=== PATIENT | female | born 1950 | race Caucasian/White ===

== ENCOUNTER 2017-07-04 08:27 | Outpatient (CLI) | payer MEDICARE ==
--- NOTE | 2017-07-04 10:46 | CT ---
ABDOMEN CT WITH CONTRAST PELVIC CT WITH CONTRAST: Date: 07/04/17 HISTORY: Abdominal pain. Stretching feeling. Patient has a history of vaginal wall collapse and hernia. COMPARISON: None. TECHNIQUE: Abdomen and pelvic CT performed with IV and oral contrast. Reformatted images are submitted for inter pretation. FINDINGS: ABDOMEN CT: Dependent atelectatic changes lung bases. Normal heart size. No pericardial effusion. Descending thor acic aorta and abdominal aorta have normal caliber. No periaortic fat stranding. Gallbladder is unrem arkable. Intra and extrahepatic portal vein is patent. Liver, spleen, pancreas, and adrenal glands have appropriate enhancement. No gastrohepatic, retrocrural, or periportal lymphadenopathy. No mesenteric mass, lymphadenopathy, free air, or free fluid. Symmetric enhancement of the kidneys. Multiple hypodensities in the left and right renal cortex, comp atible with renal parenchymal cysts. The largest cyst is in the lower pole of the right kidney, measu ring 1.7 cm. Hypodensities in the left and right renal pelvis are noted. It is difficult to determine if these are parapelvic cysts or dilatation of the intrarenal collecting system. Bilaterally, the ureters have a normal caliber. No hydroureter, periureteral fat stranding, or ureterolithiasis. Gastric mucosa and duodenum are normal in appearance. Multiple normal caliber small bowel loops. Ileo cecal junction is normal. Appendix is not appreciated. No inflammation of the cecal apex. Contrast an d fecal material in a nondistended, nondilated colon. PELVIC CT: Uterus is surgically absent. Heterogeneous appearance of the vaginal vault. There is mild mucosal pro minence in the dependent portion of the urinary bladder. No pelvic mass, lymphadenopathy, free air, o r free fluid. No lytic or blastic lesions within the osseous structures. IMPRESSION: 1. No evidence of bowel obstruction. 2. Heterogeneous appearance of the vaginal vault. 3. Hypodensities left and right renal pelvis, nonspecific. Parapelvic cysts are favored. Confirmed w ith IVP is recommended. 4. Mild soft tissue prominence in the dependent portion of the urinary bladder. Consider cystoscopy. CODE T. POS: [facility]
== END 2017-07-04 08:28 | disposition home or self-care (01) ==
LOC: SCSCT 08:27
PROVIDERS: ATTEND Family Medicine
DX: R10.84 Generalized abdominal pain (principal); N94.89 Other specified conditions associated with female genital organs and menstrual cycle; R93.41 Abnormal radiologic findings on diagnostic imaging of renal pelvis, ureter, or bladder
CPT/HCPCS: 74177

== ENCOUNTER 2017-07-17 08:02 | Outpatient (CLI) | payer MEDICARE | END 2017-07-17 08:03 | disposition home or self-care (01) | LOC: BICULT 08:02 | PROVIDERS: ATTEND Internal Medicine | DX: R10.11 Right upper quadrant pain (principal); Z90.49 Acquired absence of other specified parts of digestive tract | CPT/HCPCS: 76705 ==

== ENCOUNTER 2017-08-16 15:23 | Outpatient (CLI) | payer MEDICARE ==
[2017-08-16 16:27] LABS: Hemoglobin 12.9 g/dL (12.0-16.0); Mean Corpuscular HGB CONC 33.9 g/dL (32.0-36.0); Mean Corpuscular Volume 97.2 fL (78.0-98.0); Mean Platelet Volume 7.4 fL (7.4-10.4); Platelet Count 216 thou/uL (130-400); RBC Distribution Width 11.6 % (11.5-14.5); Red Blood Cell (RBC) Count 3.91 mill/uL (4.20-5.40); White Blood Cell (WBC) Count 7.1 thou/uL (4.8-10.8)
== END 2017-08-16 15:24 | disposition home or self-care (01) ==
LOC: LABBT 15:23
PROVIDERS: ATTEND Obstetrics & Gynecology
DX: Z01.812 Encounter for preprocedural laboratory examination (principal); N81.10 Cystocele, unspecified; N81.6 Rectocele
CPT/HCPCS: 85027; 86850; 86900; 86901

== ENCOUNTER 2017-08-21 07:11 | Observation (INO) | payer MEDICARE ==
[2017-08-16 15:40] VITALS: BMI 21.4
--- NOTE | 2017-08-16 16:08 | HP ---
HISTORY OF PRESENT ILLNESS: Ms. Blake is a 67-year-old white female who has recently noted a bulgi ng sensation in her vagina. This occurred after she had lifting some heavy water bottles. She has h ad a history of previous hysterectomy in the past. She denies any stress incontinence or urge incont inence issues. She was seen in my office on 07/11/2017 and was noted to have significant pelvic prol apse with grade 3 cystocele and grade 2 rectocele and she desired surgical repair. PAST MEDICAL HISTORY: Hypothyroidism and some allergic rhinitis. PAST SURGICAL HISTORY: Cholecystectomy, hysterectomy, tubal ligation. SOCIAL HISTORY: Nonsmoker, minimal alcohol use. She is currently and retired. ALLERGIES: SULFA DRUGS. FAMILY HISTORY: Essential hypertension, heart disease, and diabetes. PHYSICAL EXAMINATION: VITAL SIGNS: Blood pressure is 110/64, pulse is regular at 76, respirations 18, height 65 inches, we ight 128 pounds with a BMI 21.3. GENERAL: Showed a well-developed, well-nourished, white female in no acute distress. NECK: Supple. No thyromegaly or masses. CHEST: Clear to auscultation. HEART: Regular rate and rhythm. S1, S2 heart sounds. No murmurs, rubs or gallops. ABDOMEN: Soft, nontender, nondistended with no palpable masses. PELVIC: Vulva and vagina had no lesions. There was a grade III cystocele and a grade II rectocele. The vaginal cuff seemed adequately supported. Cervix was surgically absent along with absent surgic al uterus. There were no adnexal masses or tenderness. ASSESSMENT: A 67-year-old white female with symptomatic grade 3 cystocele and grade II rectocele, de siring surgical repair. PLAN: Proceed with an anterior and posterior repair on 08/21/2017. Risks and benefits of procedure discussed in detail. She is set for surgery for that day.
[2017-08-21] MEDS ORDERED: CEFAZOLIN/Water 2 GM/20 ML SYRINGE ONE (08:17)
[2017-08-21] MEDS ORDERED: Scopolamine 1.5 mg/72 hour Patch ONE (09:16)
[2017-08-21] MEDS ORDERED: Midazolam HCl 2 mg/2 ml Vial ONE (09:16)
[2017-08-21] MEDS ORDERED: Lidocaine 1% w/Epinephrine 1:100K 30 ML VIAL ONE (09:44)
[2017-08-21] MEDS ORDERED: Fentanyl 100 MCG/2 ML VIAL ONE ×3 (09:46→11:49)
[2017-08-21] MEDS ORDERED: Promethazine HCl 25 MG/ML VIAL SLOW IVP PRN (11:25)
[2017-08-21] MEDS ORDERED: Promethazine HCl 25 MG/ML VIAL IM PRN ×2 (11:25→12:50)
[2017-08-21] MEDS ORDERED: Ondansetron HCl/PF 4 MG/2 ML Vial IVP PRN ×2 (11:25→12:50)
[2017-08-21] MEDS ORDERED: Ketorolac Tromethamine 30 MG/ML VIAL ONE (11:49)
[2017-08-21] MEDS ORDERED: traMADol HCl 50 MG TAB PO PRN (12:50)
[2017-08-21] MEDS ORDERED: diphenhydrAMINE 25 MG CAP PO PRN (12:50)
[2017-08-21] MEDS ORDERED: Ketorolac Tromethamine 30 MG/ML VIAL IVP SCH (13:00)
[2017-08-21] MEDS ORDERED: Lidocaine 1% PF 5 ML VIAL ONE (13:12)
[2017-08-21] MEDS ORDERED: PROPOFOL 200 MG/20 ML VIAL ONE (13:12)
[2017-08-21] MEDS ORDERED: Dexamethasone 20 MG/5 ML VIAL ONE (13:12)
[2017-08-21] MEDS ORDERED: Ondansetron HCl/PF 4 MG/2 ML Vial ONE (13:12)
--- NOTE | 2017-08-21 16:34 | OP ---
DATE OF PROCEDURE: 08/21/2017 PREOPERATIVE DIAGNOSIS: A 67-year-old white female with prior hysterectomy with grade 3 cystocele an d rectocele, symptomatic. POSTOPERATIVE DIAGNOSIS: A 67-year-old white female with prior hysterectomy with grade 3 cystocele a nd rectocele, symptomatic. PROCEDURE PERFORMED: Anterior and posterior repair. SURGEON: Dora Rowland M.D. BUSINESS ASSOCIATE SURGEON: Yony Gimenez M.D. ANESTHESIA: General. ESTIMATED BLOOD LOSS: Less than 50 mL. COMPLICATIONS: None. COUNTS: Correct x2. ANTIBIOTICS: Two grams Ancef front desk associate to OR. DRAINS: Chawla catheter clear urine draining. ANTIBIOTICS: 2 grams Ancef. PATHOLOGY: None. FINDINGS: Post procedure, no evidence of any rectal suture placement and with digital rectal exam wi th good reduction of rectocele noted. DISPOSITION: To the recovery room stable, then 23-hour observation. DESCRIPTION OF OPERATIVE PROCEDURE: The patient previously received informed consent in regard to moseley rgery. She was taken back to the operating room where she received a general anesthetic agent withou t complications. She was placed in the dorsal lithotomy position with candycane stirrups and prepped and draped in the usual sterile fashion. Chawla catheter was placed at this time. A curved [place] b lade was then placed on the vaginal cuff and was grasped with 2 Allis clamps. The anterior vaginal m ucosa was infiltrated with 1% lidocaine with epinephrine. Then, a midline incision and anterior vagi nal mucosa was made with Metzenbaum scissors. The mucosa was then dissected submucosally up to appro ximately 2 cm from the urethral meatus and the edges of the vaginal mucosa were grasped with Allis-Ad air clamps. The cystocele defect was then reduced with both sharp and blunt dissection, dissecting e ndopelvic fascia away from the vaginal mucosa. Once the cystocele was adequately reduced, figure-of- eight sutures of 2-0 Vicryl were then placed reincorporating the endopelvic fascia and plicating this in the midline with reduction of the cystocele. This initiated most proximally towards the urethral meatus and then working, then caudally reducing the cystocele defect. The excess vaginal mucosa was trimmed and then the vaginal mucosa was closed with a running 2-0 Vicryl suture incorporating the en dopelvic tissue to rid the space. Hemostasis was confirmed. Clear urine has been draining from the Chawla catheter and this again was confirmed. The posterior repair was then carried out and two Allis clamps placed in the vaginal introitus opening the posterior introitus at the 4 and 8 o'clock p osition. The vaginal mucosa overlying the rectocele was infiltrated with 1% lidocaine with epinephri ne. A midline incision in the vaginal posterior mucosa was then made with Metzenbaum scissors. The edges of this were grasped with Allis-Teodoro clamps and again the rectocele was dissected away from th e vaginal mucosa submucosally with Metzenbaum scissors until the vaginal cuff was reached. The edges of the vaginal mucosa again were grasped with Allis clamps for countertraction. The rectocele was t hen dissected both sharply and bluntly reducing the rectocele all the way up to the vaginal cuff. No enterocele was encountered. The endopelvic fascia then starting most caudally was then grasped with a 0 Vicryl suture and again plicated in the midline from [id number] reducing the rectocele defect until this worked out towards the introitus. The endopelvic fascia was replicated well with reductio n of the hernia. Hemostasis of the fascia was confirmed. The posterior mucosa was then trimmed and the posterior vaginal mucosa was then closed starting at the apex incorporating this into the endopel ed fascia in a interrupted [id number] sutures of 2-0 Vicryl securing hemostasis. A rectal exam was performed and no evidence of any inadvertent stitches that had been placed in the rectum were co nfirmed. The vagina was then packed with a moistened Kerlix. The patient was awakened from anesthes ia, transferred to the recovery in stable condition.
[2017-08-21] MEDS: Ketorolac Tromethamine 30 MG/ML VIAL IVP SCH (17:23)
[2017-08-21] MEDS: Lactated Ringer's 1,000 ML IV SCH (17:34)
[2017-08-22] MEDS: Ketorolac Tromethamine 30 MG/ML VIAL IVP SCH ×2 (00:11→05:34)
[2017-08-22] MEDS: Lactated Ringer's 1,000 ML IV SCH (02:25)
[2017-08-22 05:53] LABS: Hemoglobin 10.7 g/dL (12.0-16.0); Mean Corpuscular HGB CONC 33.7 g/dL (32.0-36.0); Mean Corpuscular Hemoglobin 33.2 pg (27.0-31.0); Mean Corpuscular Volume 98.3 fL (78.0-98.0); Mean Platelet Volume 7.4 fL (7.4-10.4); Platelet Count 174 thou/uL (130-400); RBC Distribution Width 11.4 % (11.5-14.5); Red Blood Cell (RBC) Count 3.24 mill/uL (4.20-5.40); White Blood Cell (WBC) Count 7.3 thou/uL (4.8-10.8)
[2017-08-22] MEDS ORDERED: Levothyroxine Sodium 50 MCG TAB PO SCH (06:00)
--- NOTE | 2017-08-22 07:56 | PDOC.EVN ---
Event Note - Event Note Event Note: No pain this morning. No nausea. Will begin voiding trials today. O:AFVSS perineum intact and dry. no active bleeding or hematoma. A/P doing well post op day 1 from A&P repair. pvr checks after voiding. if doing well, d/c home. Hasw rx for tramadol and f/u in 2 and 6 weeks.
[2017-08-22] MEDS ORDERED: Fluticasone Propionate Nasal Spray 16 gm Bottle NASAL SCH (09:00)
[2017-08-22] MEDS ORDERED: Bisacodyl 5 MG TAB PO SCH (09:00)
[2017-08-22 11:57] VITALS: BP 122/58; TEMP 99.5
[2017-08-26] MEDS ORDERED: Ibuprofen 800 MG TAB PO SCH (21:00)
== END 2017-08-22 12:15 | disposition home or self-care (01) ==
LOC: SDC 07:11 → 3SE 12:49 → EDSTATUS 15:15 → 3SE 08-22 00:13 → SDC 08-22 00:13
PROVIDERS: ADMIT Obstetrics & Gynecology; ATTEND Obstetrics & Gynecology
PROC: 0JQC0ZZ Repair Pelvic Region Subcutaneous Tissue and Fascia, Open Approach (ICD-10-PCS; principal; 2017-08-21)
PROC: 0JQC0ZZ Repair Pelvic Region Subcutaneous Tissue and Fascia, Open Approach (ICD-10-PCS; 2017-08-22)
DX: N81.10 Cystocele, unspecified (principal); N81.6 Rectocele; Z88.2 Allergy status to sulfonamides; Z79.899 Other long term (current) drug therapy
CPT/HCPCS: 57260; 85027; 96361 ×2; 96374; 96375; 96376 ×2; G0378; 36415; A4216; J1100; J1885; J2001; J2250; J2270; J2405; J2704; J3010

== ENCOUNTER 2018-04-05 09:11 | Outpatient (CLI) | payer MEDICARE ==
--- NOTE | 2018-04-05 11:03 | BD ---
DEXA BONE DENSITY STUDY: HISTORY: Postmenopausal. Long-term use of bisphosphonates. LUMBAR SPINE BMD (g/cm2) T-SCORE L1 0.845 -1.3 L2 0.864 -1.5 L3 0.862 -2.0 L4 0.846 -2.0 TOTAL 0.854 -1.8 LEFT FEMORAL NECK 0.604 -2.2 TOTAL 0.753 -1.5 IMPRESSION: 1. Osteopenia of the lumbar spine and left femoral neck. 2. Ten-year fracture risk for major osteoporotic fracture is 11%, with hip fracture is 2.2%. These fracture probabilities are calculated for an untreated patient. POS: [facility]
== END 2018-04-05 09:12 | disposition home or self-care (01) ==
LOC: BICMAMMO 09:11
PROVIDERS: ATTEND Family Medicine
DX: Z13.820 Encounter for screening for osteoporosis (principal); M85.89 Other specified disorders of bone density and structure, multiple sites; Z79.83 Long term (current) use of bisphosphonates
CPT/HCPCS: 77080

== ENCOUNTER 2018-10-20 21:53 | Observation (INO) | payer MEDICARE ==
[~2018-10-20 21:53] MED LIST: Iopamidol 370 76% 100 ML VIAL ONE
[2018-10-20 22:38] LABS: #Basophils 0.1 thou/uL (0.0-0.2); #Eosinphils 0.2 thou/uL (0.0-0.7); #Lymphocytes 2.1 thou/uL (1.20-3.40); #Monocytes 0.6 thou/uL (0.11-0.59); %Basophils 1.2 % (0.0-1.0); %Eosinophils 2.2 % (0.0-10.0); %Lymphocytes 26.7 % (21.0-51.0); %Monocytes 7.4 % (0.0-10.0); %Neutrophils 62.5 % (42.0-75.0); Hemoglobin 12.8 g/dL (12.0-16.0); Mean Corpuscular HGB CONC 32.9 g/dL (32.0-36.0); Mean Corpuscular Hemoglobin 32.3 pg (27.0-31.0); Mean Corpuscular Volume 98.2 fL (78.0-98.0); Mean Platelet Volume 6.9 fL (7.4-10.4); Platelet Count 212 thou/uL (130-400); RBC Distribution Width 11.8 % (11.5-14.5); Red Blood Cell (RBC) Count 3.97 mill/uL (4.20-5.40); White Blood Cell (WBC) Count 7.9 thou/uL (4.8-10.8)
--- NOTE | 2018-10-20 22:39 | RAD ---
EXAM: CHEST ONE VIEW HISTORY: Chest pain, nausea, numbness in left arm. COMPARISON: 10/20/2004. FINDINGS: The cardiac silhouette and pulmonary vasculature is within normal limits. The lungs are clear. The os seous structures are intact. Surgical clips overlie the right upper quadrant. There has been no interval change from prior study. IMPRESSION: No acute cardiopulmonary process.
[2018-10-20 22:45] LABS: Prothrombin Time 12.9 SEC (12.0-14.7)
[2018-10-20] MEDS ORDERED: Nitroglycerin 2% Ointment 1 INCH/1 GM Packet ONE (22:49)
[2018-10-20 22:53] LABS: Bilirubin Negative (Negative); Blood, Urine Small (Negative); Clarity Clear (Clear); Glucose, Urine (Dipstick) Negative (Negative); Leukocyte Large (Negative); Nitrite Negative (Negative); Protein, Urine (Dipstick) Negative (Neg-Trace); Urobilinogen 0.2 mg/dL (Less than 2)
[2018-10-20 22:56] LABS: ALT (SGPT) 13 U/L (8-55); AST (SGOT) 24 U/L (5-34); Albumin 4.2 g/dL (3.4-4.8); Alkaline Phosphatase 53 U/L (40-150); Anion Gap 15 mmol/L (10-20); BUN (Urea Nitrogen) 17 mg/dL (9.8-20.1); Bilirubin, Total 0.2 mg/dL (0.2-1.2); CK (CPK) 72 U/L (29-168); Calc. Creatinine Clearance 0 mL/min (70-130); Calcium 9.4 mg/dL (7.8-10.44); Carbon Dioxide 26 mmol/L (23-31); Chloride 105 mmol/L (98-107); Estimated GFR-MDRD 67; Globulin 3.7 g/dL (2.4-3.5); Glucose 102 mg/dL (80-115); Lipase 52 U/L (8-78); Potassium 4.7 mmol/L (3.5-5.1); Protein, Total 7.9 g/dL (6.0-8.3); Sodium 141 mmol/L (136-145)
--- NOTE | 2018-10-20 22:57 | CT ---
CT HEAD WITHOUT IV CONTRAST COMPARISON: 10/20/2004 HISTORY: Left arm numbness. TECHNIQUE: Axial CT imaging at 5 mm intervals from vertex through skull base without contrast FINDINGS: There is mild cerebral volume loss not unexpected for the patient's age and similar to prior study. A punctate 3 mm low-density focus is seen in the left lentiform nucleus which may represent a tiny lacunar infarction of indeterminate age. There is no evidence of an acute cortical infarction, hemorr santos, mass effect, or midline shift. The ventricular system is normal in size, shape, and position. Visualized paranasal sinuses are clear. Osseous structures appear intact. IMPRESSION: 1. No acute intracranial abnormality demonstrated. 2. Tiny lacunar infarction left lentiform nucleus of indeterminate age.
[2018-10-20 22:59] LABS: Bacteria/HPF Rare-Few HPF (None Seen); RBC/HPF 0-3 HPF (0-3); Squamous Epithelial 0-3 HPF (0-3); WBC/HPF 0-3 HPF (0-3)
--- NOTE | 2018-10-20 23:19 | CT ---
EXAM: CTA Angio Neck W WO Con PROVIDED CLINICAL HISTORY: Pain left side of neck with left arm numbness and nausea. COMPARISON: None FINDINGS: There is a normal arrangement of the great vessels at the aortic arch which are patent. The bilateral subclavian arteries, innominate artery and bilateral common carotid arteries are patent. The bilateral internal and external carotid arteries are patent. The bilateral vertebral arteries are pat ent and codominant. The bilateral submandibular and parotid glands and thyroid gland demonstrate a normal CT appearance. There are parenchymal densities seen at the most superior aspect of each lung apex asymmetrically gre ater on the right. Findings are thought to most likely be related to pleural and parenchymal scarring. The prevertebral soft tissues are within normal limits. Mild degenerative changes are seen in the spi ne. IMPRESSION: 1. Patent bilateral internal carotid arteries and patent bilateral vertebral arteries. 2. Findings which are most likely attributable to biapical pleural and parenchymal scarring.
--- NOTE | 2018-10-21 00:25 | PDOC.FPRHP ---
- History of Present Illness Chief Complaint: Numbness/Neck pain History of Present Illness: 68 yo female presented to [facility] ED tonight complaining of recurrent episodes of neck pain w/ associated left arm numbness. Pt stated this first occurred 2 nights ago while watching TV. She took an aspirin and the sx resolved 30 minutes later. Tonight the pt had recurring episode again while at rest prompting her to seek further evaluation. Pt denies any history of heart disease, does not use tobacco, exercises regularly. Denies any recent injury to her neck/arm or any change in activity. ED Course: CT brain and CTA head and neck and CXR negative for acute findings. Initial trop negative. Given asa and nitro. - Allergies/Adverse Reactions Allergies Allergy/AdvReac Type Severity Reaction Status Date / Time Sulfa (Sulfonamide Allergy reddened Verified 10/21/18 00:54 Antibiotics) skin streaking - Home Medications Medication Instructions Recorded Confirmed Type Levothyroxine Sodium 50 mcg PO QAM 08/16/17 10/21/18 History - History PMHx: Hypothyroid, rectocele, cystocele PSHx: Vaginal wall repair, epi, hyst, lumpectomy, hand surgery FHx: Brother and father w/ DM Social: No tobacco, occasional beer, no drugs - Review of Systems General: denies: fever/chills, weight/appetite/sleep changes Eyes: denies: vision changes ENT: reports: other (no cold sx). denies: nasal congestion Respiratory: denies: cough, congestion, shortness of breath, exercise intolerance Cardiovascular: denies: chest pain, palpitation, edema Gastrointestinal: reports: nausea (mild nausea following pain). denies: vomiting, diarrhea, abdominal pain Genitourinary: denies: dysuria Skin: denies: rashes, lesions Musculoskeletal: reports: pain (left neck). denies: tenderness, stiffness Neurological: reports: numbness (left hand), other (paresthesias left upper arm) Psychological: reports: anxiety. denies: depression - Vital signs BP: 140/65 HR: 60 RR: 18 Tmax: 97.8 Pox: 98% on RA Wt: 60kg - Physical Exam Constitutional: NAD, awake, alert and oriented, well developed HEENT: normocephalic and atraumatic, EOMI, no scleral icterus, MMM Neck: supple, FROM, no JVD, no thyromegaly, other (negative spurlings) Chest: no-tender to palpation, no lesions Heart: RRR, normal S1/S2, no murmurs/rubs/gallops, pulses present, no edema Lungs: CTAB, no respiratory distress, good air movement, no rales/rhonchi, no wheezing Abdomen: soft, non-tender, bowel sounds present Musculoskeletal: normal structure, normal tone Neurological: no focal deficit, CN II-XII intact, normal sensation Skin: no rash/lesions, no jaundice Heme/Lymphatic: no unusual bruising or bleeding, no purpura Psychiatric: normal mood and affect, good judgment and insight, intact recent and remote memory FMR H&P: Results - Labs Result Diagrams: 10/20/18 22:35 10/20/18 22:35 Lab results: WBC 7.9 thou/uL (4.8-10.8) 10/20/18 22:35 Hgb 12.8 g/dL (12.0-16.0) 10/20/18 22:35 Hct 39.0 % (36.0-47.0) 10/20/18 22:35 MCV 98.2 fL (78.0-98.0) H 10/20/18 22:35 Plt Count 212 thou/uL (130-400) 10/20/18 22:35 Neutrophils % 62.5 % (42.0-75.0) 10/20/18 22:35 Sodium 141 mmol/L (136-145) 10/20/18 22:35 Potassium 4.7 mmol/L (3.5-5.1) 10/20/18 22:35 Chloride 105 mmol/L (98-107) 10/20/18 22:35 Carbon Dioxide 26 mmol/L (23-31) 10/20/18 22:35 BUN 17 mg/dL (9.8-20.1) 10/20/18 22:35 Creatinine 0.84 mg/dL (0.6-1.1) 10/20/18 22:35 Glucose 102 mg/dL (80-115) 10/20/18 22:35 Lactic Acid 1.8 mmol/L (0.5-2.2) 10/20/18 22:35 Calcium 9.4 mg/dL (7.8-10.44) 10/20/18 22:35 Total Bilirubin 0.2 mg/dL (0.2-1.2) 10/20/18 22:35 AST 24 U/L (5-34) 10/20/18 22:35 ALT 13 U/L (8-55) 10/20/18 22:35 Alkaline Phosphatase 53 U/L (40-150) 10/20/18 22:35 Creatine Kinase 72 U/L (29-168) 10/20/18 22:35 Serum Total Protein 7.9 g/dL (6.0-8.3) 10/20/18 22:35 Albumin 4.2 g/dL (3.4-4.8) 10/20/18 22:35 Lipase 52 U/L (8-78) 10/20/18 22:35 Urine Ketones Negative mg/dL (Negative) 10/20/18 22:37 Urine Blood Small (Negative) A 10/20/18 22:37 Urine Nitrite Negative (Negative) 10/20/18 22:37 Ur Leukocyte Esterase Large (Negative) H 10/20/18 22:37 Urine RBC 0-3 HPF (0-3) 10/20/18 22:37 Urine WBC 0-3 HPF (0-3) 10/20/18 22:37 Ur Squamous Epith Cells 0-3 HPF (0-3) 10/20/18 22:37 Urine Bacteria Rare-Few HPF (None Seen) 10/20/18 22:37 - EKG Interpretation EKG: NSR 63, no ST or T wave changes - Radiology Interpretation CT scan - head Status: report reviewed by me (CT brain - tiny left lacunar infarct age undeterminate. No acute intracranial abnormalities) Chest x-ray Status: report reviewed by me (No acute abnormalities) FMR H&P: A/P - Problem List (1) Paresthesias/numbness Current Visit: Yes Status: Acute Code(s): R20.9 - UNSPECIFIED DISTURBANCES OF SKIN SENSATION (2) Neck pain Current Visit: Yes Status: Acute Code(s): M54.2 - CERVICALGIA - Plan Neck pain - Likely 2/2 cervical ridiculopathy vs msk pain, r/o atypical ACS Left neck pain w/ left arm paresthesias 2 episodes lasting 30 minutes, resolved following asa; Currently asymptomatic -ED: nitro x1; EKG: Normal : CXR: No acute findings -Heart score: 3 -Initial troponin: negative, trending -Repeat EKG if CP returns, prn nitro -TTE and treadmill cardiolite stress test ordered -NPO for procedure -Risk stratify: FLP ordered Paresthesias/Numbness - Likely radicular, less likely referred sx from ACS -Spurling negative and no concerning hx -Likely caused by transient muscle spasm -Cont to monitor sx for recurrence Hypothyroid -Resume home levothyroxine 50mcg Disp: Admit tele obs VTE: SCD Diet: NPO Code Status: Full FMR H&P: Upper Level - Pertinent history 68 y/o F PMHx hypothyroidism presents to the ED in [facility] due to recurrent episodes of L arm numbness and L neck pain. She reports that the night before last she was sitting watching TV and suddenly had numbness in her L hand, paresthesia of her left upper arm, and a sharp pain on the left side of her neck. She immediately took 325mg aspirin and reports that within 30 minutes her symptoms had completely resolved. She reports that the same thing happened tonight so she got scared and decided to come to the ED. She denies any diaphoresis, SOB, N/V, chest pain, weakness. She denies any cardiac history or history of stroke. - Pertinent findings Vitals: BP 140/65, HR 60, RR 18, Temp 97.8, 98% on RA PE: Gen - Alert, oriented, NAD Neck - no TTP of the neck, FROM, Spurlings negative CV - RRR, no murmurs, no edema Lungs - CTAB, no wheezes Neuro - CN II-XII intact, sensation grossly intact, 5/5 strength bilaterally Labs: Trop negative x1 - Plan Date/Time: 10/21/18 0024 I, Jodi Jeronimo MD, PGY-3, have evaluated this patient and agree with findings/ plan as outlined by machine learning intern resident. Pertinent changes/additions are listed here. 1. Neck Pain concerning for atypical ACS Pt with left sided neck pain and concurrent paresthesias of the left arm that resolved with aspirin therapy. Trop negative x1. EKG with no ST/T wave changes. CXR with no acute findings. Nitro paste in place. Heart score 3. DDx: ACS vs cervical radiculopathy -Will obs on tele for ACS r/o -Trend trops -Repeat EKG for any new or worsening symptoms -Nitro paste in place -Check FLP in AM -Stress test -Echo 2. Paresthesias Concerning for cervical radiculopathy. -Will check mag/phos - other electrolytes WNL. 3. Hypothyroidism -Continue home synthroid Dispo: Obs on tele Code Status: Full
[2018-10-21 00:58] VITALS: BMI 21.9
[2018-10-21] MEDS ORDERED: Nitroglycerin 2% Ointment 1 INCH/1 GM Packet TOP SCH (01:00)
[2018-10-21] MEDS ORDERED: Aspirin 325 MG TAB PO SCH (01:00)
[2018-10-21] MEDS ORDERED: Acetaminophen 325 MG TAB PO PRN (01:24)
[2018-10-21 02:00] LABS: Troponin I Less than 0.010 ng/mL (< 0.028)
[2018-10-21 05:48] LABS: Phosphorus 3.8 mg/dL (2.3-4.7)
[2018-10-21 05:49] LABS: Cardiac Risk 3.1 (Less than 4.5); Magnesium 2.2 mg/dL (1.6-2.6)
[2018-10-21 05:53] LABS: Troponin I Less than 0.010 ng/mL (< 0.028)
[2018-10-21] MEDS: Levothyroxine Sodium 50 MCG TAB PO SCH (06:10)
--- NOTE | 2018-10-21 11:54 | PRG ---
DATE OF SERVICE: 10/21/2018 Ms. Blake is a very pleasant 68-year-old lady, who was admitted with some neck and arm discomfort that really sounds like a cervical radiculopathy. We are going ahead and do an ACS rule out, though I really doubt that this is cardiac. I would recommend we get a plain film of her C-spine to look for evidence of osteoarthritis of which she has a history. In the event, I would treat this with NSAIDs and heat. If her stress test is normal, she will be discharged. Job ID: [id number]
--- NOTE | 2018-10-21 12:54 | NM ---
NUCLEAR MEDICINE CARDIAC STRESS WITH EF AND WALL MOTION: HISTORY: Chest pain. COMPARISON: None. TECHNIQUE: Nuclear medicine cardiac stress with EF and wall motion was performed. Patient was administered 9.3 m Ci of technetium 99m sestamibi for rest imaging and 32.3 mCi of technetium 99m sestamibi for stress imaging. FINDINGS: There appears to be reversibility involving the anterior septal region, near the midportion and apex. Fixed defect in the posterolateral region, near the midportion and base. TID: 1.07. End-diastolic volume: 61 mL. End systolic volume: 15 mL. Cardiac gating: Normal wall motion and wall thickening. Ejection fraction: 75%. IMPRESSION: 1. Fixed defect involving the posterolateral left ventricle near the midportion and base. 2. Reversibility involving the anterior septal region, near the midportion and apex. Transcribed Date/Time: 10/21/2018 2:24 PM
--- NOTE | 2018-10-21 15:10 | RAD ---
Cervical spine 4 views HISTORY: Neck pain. FINDINGS: Vertebral body heights are maintained. Disc space narrowing at the C5-6 and C6/7 levels. Mi nimal degenerative retrolisthesis at the C5-6 level is stable compared to recent CT exam. No acute fracture or dislocation. IMPRESSION: Degenerative changes. No acute osseous abnormalities are demonstrated.
--- NOTE | 2018-10-22 02:08 | CON ---
DATE OF CONSULTATION: HISTORY OF PRESENT ILLNESS: Socorro Blake is a 68-year-old white female without any history of cardiac problems in the past. Last night, she went to [facility] complaining of some neck pain associated with left arm numbness. She had this 2 nights in a row and it seemed to occur while she was just sitting, watching TV. Episodes last approximately 30 minutes. Cardiac enzymes were unremarkable. She underwent Cardiolite treadmill testing, exercising for 6 minutes. She did not have any chest discomfort. The EKG portion was negative for ischemia. However, Cardiolite revealed ejection fraction of 75%. There was a fixed defect involving the posterolateral left ventricle near the midportion and the base. There was reversible ischemia involving the anterior septal region near the midportion and apex. PAST MEDICAL HISTORY: Hypothyroidism. No history of hypertension, diabetes, or hypercholesterolemia. PAST SURGICAL HISTORY: Repair of rectocele, cystocele and vaginal wall repair, cholecystectomy, hysterectomy, lumpectomy, hand surgery. FAMILY HISTORY: Negative for coronary artery disease. SOCIAL HISTORY: She does not smoke or drink. MEDICATIONS: Levothyroxine 50 mcg q.a.m. ALLERGIES: SULFA. REVIEW OF SYSTEMS: A 12-point review of systems unremarkable. PHYSICAL EXAMINATION: VITAL SIGNS: Blood pressure 128/64, pulse 73. HEENT: PERRL. NECK: Supple. CHEST: Clear. CARDIAC: S1 and S2 are normal without any S3, S4, or murmurs. Carotid upstrokes are normal without bruits. ABDOMEN: Normal bowel sounds without tenderness or organomegaly. EXTREMITIES: Revealed no clubbing, cyanosis, or edema. NEUROLOGICAL: Grossly intact. SKIN: Warm and dry. LABORATORY DATA: Hemoglobin 12.8, hematocrit 39.0, white count 7900, platelets 212,000. Sodium 141, potassium 4.7, chloride 105, carbon dioxide 26, BUN 17, creatinine 0.84. Cardiac enzymes were unremarkable. Cholesterol 154, triglycerides 77, LDL 89, HDL 50, TSH 5.7366, which is slightly elevated. IMPRESSION: 1. Somewhat atypical neck and left arm pain occurring at rest. This was not reproduced on the treadmill. 2. Abnormal Cardiolite. 3. Hypothyroidism. PLAN: Situation discussed with the patient. It is recommended that she undergo cardiac catheterization. Risks of this were discussed including , myocardial infarction, dye reaction, vascular injury, CVA, transfusion, limb loss, renal loss, etc. Also risk of intervention with stent placement discussed including , myocardial infarction, emergent CABG, restenosis, stent thrombosis, vessel perforation, etc. She has no history of gastrointestinal bleeding or stroke. She has no upcoming surgeries and overall it is recommended that a drug-eluting stent will be placed if needed. Job ID: [id number] [id number]
[2018-10-22] MEDS: Levothyroxine Sodium 50 MCG TAB PO SCH (04:58)
--- NOTE | 2018-10-22 05:15 | PDOC.FM ---
- Subjective Subjective: Patient doing well this morning. Spoke with Dr. Contreras last night extensively about having a cardiac cath, and decided to think about it overnight and discuss it with her children. She states this morning that she would like to have the cath, and is awaiting confirmation with Dr. Contreras for potential cardiac cath today. Denies cp, sob. - Objective MAR Reviewed: Yes Vital Signs & Weight: Vital Signs (12 hours) Temp Pulse Resp BP BP BP Pulse Ox 10/22/18 04:20 98.2 F 71 16 117/60 97 10/21/18 23:55 98.0 F 61 16 149/67 H 98 10/21/18 20:00 98.3 F 73 18 128/64 97 Weight Admit Weight 59.829 kg Weight 59.829 kg I&O: 10/20/18 10/21/18 10/22/18 06:59 06:59 06:59 Intake Total 360 720 Output Total 200 Balance 160 720 Result Diagrams: 10/20/18 22:35 10/20/18 22:35 Phys Exam - Physical Examination Constitutional: NAD HEENT: moist MMs, sclera anicteric Neck: supple, full ROM Respiratory: no wheezing, clear to auscultation bilateral Cardiovascular: RRR, no significant murmur Gastrointestinal: soft, non-tender Musculoskeletal: no edema, pulses present Neurological: non-focal, moves all 4 limbs Lymphatic: no nodes Psychiatric: normal affect, A&O x 3 Skin: no rash, normal turgor Dx/Plan (1) Abnormal stress test Status: Acute (2) Neck pain Code(s): M54.2 - CERVICALGIA Status: Acute (3) Paresthesias/numbness Code(s): R20.9 - UNSPECIFIED DISTURBANCES OF SKIN SENSATION Status: Acute - Plan Plan: Patient is a 68F that presented with neck pain likely 2/2 radiculopathy, r/o atypical ACS, being treated for abnormal stress test. #Abnormal Stress Test -ED: nitro x1; EKG: Normal : CXR: No acute findings -Heart score: 3 -Troponin: negative x2 -FLP: total chol 154, LDL 89, HDL 50, Triglycerides 77 -treadmill cardiolite stress test: -fixed defect involving the posterolateral left ventricle near the midportion and base -reversibility involving the anterior septal region, near the midportion and apex -cardiology consult, appreciate recs. Dr. Contreras report shows he plans for cardiac cath with possible stent placement -NPO for procedure -will f/u after procedure #Neck pain, Paresthesias/Numbness - Likely radiculopathy, less likely referred sx from ACS 2 episodes lasting 30 minutes occurring at rest, both resolved following asa; Currently asymptomatic -Spurling negative, no concerning hx -Likely caused by transient muscle spasm -Not reproduced on the tredmill cardiolite stress test -Cont to monitor sx for recurrence #Hypothyroid -TSH slightly elevated at 5.74, Free T4 normal at 0.91 -Resume home levothyroxine 50mcg Disp: tele obs for cardiac cath today VTE: SCD Diet: NPO Code Status: Full
[2018-10-22] MEDS ORDERED: Sodium Chloride 0.9% 1,000 ML IV SCH ×2 (08:00→11:12)
[2018-10-22] MEDS ORDERED: Communication Order-Pharmacy FS SCH (08:00)
[2018-10-22] MEDS ORDERED: Heparin 10,000 UNITS/1 ML VIAL ONE (08:55)
[2018-10-22] MEDS ORDERED: Lidocaine 1% (PF) 30 ML VIAL ONE (08:55)
[2018-10-22] MEDS ORDERED: Iopamidol 370 76% 50 ML VIAL FS ONE (10:04)
[2018-10-22] MEDS ORDERED: Iopamidol 370 76% 100 ML VIAL ONE (10:04)
[2018-10-22] MEDS ORDERED: Midazolam HCl 2 mg/2 ml Vial ONE (10:19)
[2018-10-22] MEDS ORDERED: Fentanyl 100 MCG/2 ML VIAL ONE (10:19)
[2018-10-22] MEDS ORDERED: Protamine Sulfate 50 MG/5 ML VIAL ONE (10:57)
[2018-10-22] MEDS ORDERED: Sodium Chloride 0.9% 200 ML IV PRN (11:11)
[2018-10-22] MEDS ORDERED: Nitroglycerin 0.4 MG TAB (25 Tab Bottle) SL PRN (11:11)
[2018-10-22] MEDS ORDERED: Acetaminophen/Codeine 30-300mg Tablet PO PRN ×2 (11:11)
--- NOTE | 2018-10-22 11:53 | PRG ---
DATE OF SERVICE: 10/22/2018 Interestingly, Ms. Blake's stress Myoview yesterday did show some reversible ischemia. She was seen by Cardiology and was taken for cardiac cath, which is where she is now. We will await the results of the cardiac cath and proceed at that time. In the event, it would seem her symptomatology may be completely unrelated to her stress Myoview. Otherwise, these symptoms could be very atypical for CAD. Job ID: [id number]
[2018-10-22 15:38] VITALS: BP 130/60; TEMP 98.4
--- NOTE | 2018-10-23 03:24 | DIS ---
DATE OF ADMISSION: 10/20/2018 DATE OF DISCHARGE: 10/22/2018 ADMITTING RESIDENT: Tom Ro DO ADMITTING ATTENDING: Marni Pineda MD DISCHARGE RESIDENT: Mira Barton MD DISCHARGE ATTENDING: Anant Sequeira MD CONSULTS: Cardiology, Dr. Contreras. IMAGIN. Chest x-ray: No acute cardiopulmonary process. 2. Brain CT: No acute intracranial abnormality demonstrated. Tiny lacunar infarction, left lentiform nucleus of indeterminate age. 3. CT angiograph: Patent bilateral internal carotid arteries and patent bilateral vertebral arteries. Parenchymal densities seen at the most superior aspect of each lung apex, greater on the right, likely attributable to biapical pleural and parenchymal scarring. 4. Cervical spine x-ray: Disk space narrowing at the C5-C6 and C6-C7 levels. Minimal degenerative retrolisthesis at the C5-C6 level, stable compared to CT exam. No acute fractures or dislocation. PROCEDURES PERFORMED: 1. Stress test, nuclear medicine: Fixed defect involving the posterior lateral left ventricle near the midportion and base. Reversibility involving the anteroseptal region, near the midportion and apex. 2. Cardiac cath: Normal coronaries, good ventricular function. PRIMARY DIAGNOSES: Abnormal stress test, neck pain, cervical radiculopathy. SECONDARY DIAGNOSIS: Hypothyroidism. DISCHARGE MEDICATIONS: Levothyroxine 50 mcg p.o. daily. DISCONTINUED MEDICATIONS: Acetaminophen 650 mg p.o. q.4 hours p.r.n. HISTORY OF PRESENT ILLNESS/HOSPITAL COURSE: The patient was seen at [facility] ED for recurrent episodes of neck pain associated with left arm numbness that improved with aspirin, first onset the night before admission. No recent trauma in the neck or arm. No history of heart disease, no tobacco use, regular exercise. EKG was normal sinus rhythm with no ST or T-wave changes. Received aspirin and nitroglycerin at [facility] ED before being transferred. She was put on daily observation for ACS rule out. Troponin negative x3. Chest x-ray, brain CT, CT angio performed as above. She was risk stratified, total cholesterol 154, LDL 89, HDL 50, triglycerides 77. Lipase is normal at 52. TSH elevated at 5.73, free T4 normal at 0.91. Cervical x-ray as above, likely explains her neck pain and numbness. Due to abnormal stress test, it was recommended the patient to have a cardiac cath, which resulted as normal. The patient was discharged and encouraged to follow up outpatient. DISPOSITION: Stable. DISCHARGE INSTRUCTIONS: 1. Location: Home. 2. Diet: Heart healthy. 3. Activity: Avoid heavy lifting until followup with PCP. 4. Followup: Follow-up with Dr. Shultz within 7 days. Job ID: [id number] MTDD
== END 2018-10-22 18:28 | disposition home or self-care (01) ==
LOC: SCSER 21:53 → 2SW 10-21 00:05
PROVIDERS: ADMIT Family Medicine; ATTEND Family Medicine
PROC: 4A023N7 Measurement of Cardiac Sampling and Pressure, Left Heart, Percutaneous Approach (ICD-10-PCS; principal; 2018-10-22)
PROC: B2111ZZ Fluoroscopy of Multiple Coronary Arteries using Low Osmolar Contrast (ICD-10-PCS; 2018-10-22)
DX: R94.39 Abnormal result of other cardiovascular function study (principal); M47.22 Other spondylosis with radiculopathy, cervical region; I63.81 Other cerebral infarction due to occlusion or stenosis of small artery; E03.9 Hypothyroidism, unspecified; M19.90 Unspecified osteoarthritis, unspecified site; Z79.899 Other long term (current) drug therapy; Z88.2 Allergy status to sulfonamides
CPT/HCPCS: 70450; 70498; 71045; 72040; 78452; 80061; 82550; 83605; 83690; 83735; 84100; 84439; 84484 ×2; 85347; 85610; 85730; 93005; 93017; 93458; 94760 ×2; 96360; 96361; 99285; A9500; C1769; G0378 ×3; 36415; 80053; 81003; 81015; 84443; 85025; 99152; 99153; J1644; J2001; J2250; J2720; J3010; Q9967

== ENCOUNTER 2019-11-19 13:03 | Outpatient (CLI) | payer MEDICARE ==
--- NOTE | 2019-11-19 14:10 | ULT ---
ULTRASOUND WITH DOPPLER DUPLEX VENOUS LOWER EXTREMITY RIGHT: 11/19/19 HISTORY: 69-year-old female with superficial thrombophlebitis. Palpable lump in calf. TECHNIQUE: Color flow Doppler, spectral waveform analysis of pulsed Doppler, and solorzano-scale imaging with joshua carmencita and augmentation, were used to evaluate the right common femoral, femoral, popliteal, posterior tibial, and superficial femoral, veins; and the proximal portions of the profunda femoral and greater saphenous, veins. FINDINGS: There is normal compressibility, demonstration of blood flow by color Doppler and pulsed Doppler, and response to augmentation, in all interrogated veins. In the subcutaneous fat of the right calf, ther e is an approximately 1.2 x 0.7 cm hyperechoic mass, with ill-defined margins. No acoustic shadowing or architectural distortion. This corresponds to the palpable lump. IMPRESSION: 1. No deep vein thrombosis in the right lower extremity. 2. Small hyperechoic mass in the subcutaneous fat of the right calf. This is nonspecific, but on e possibility is fat necrosis. jn [] POS: [facility]
== END 2019-11-19 13:04 | disposition home or self-care (01) ==
LOC: SCSULT 13:03
PROVIDERS: ATTEND Family Medicine
DX: I80.01 Phlebitis and thrombophlebitis of superficial vessels of right lower extremity (principal); R22.41 Localized swelling, mass and lump, right lower limb